=== PATIENT | male | born 1985 | race Caucasian/White ===

== ENCOUNTER 2018-12-17 11:40 | Emergency (ER) | payer OTHER ==
[~2018-12-17] VITALS: Ht 172.7 cm; Wt 84.8 kg
[2018-12-17] MEDS ORDERED: ONDANSETRON HCL 4 MG/2 ML VIAL ONE (11:55)
[2018-12-17] MEDS ORDERED: HYDROmorphone HCL 2 MG/ML VL ONE (11:55)
[2018-12-17] MEDS ORDERED: SODIUM CHLORIDE 0.9% 2,000 ML IV ONE (12:00)
[2018-12-17] MEDS ORDERED: ONDANSETRON HCL 4 MG/2 ML VIAL IV ONE (12:00)
[2018-12-17] MEDS ORDERED: HYDROmorphone HCL 2 MG/ML VL IV ONE (12:00)
[2018-12-17] MEDS ORDERED: cefTRIAXone SOD 1,000 MG VL IV ONE (12:30)
[2018-12-17] MEDS ORDERED: cefTRIAXone 1GM/50ML D5W 50 ML IV ONE ×2 (12:37→12:45)
[2018-12-17 12:41] LABS: Basophils # (auto) 0 uL; Nucleated Red Blood Cells % 0.1 %; Red Blood Cells 6.18 10^6/uL (4.5-5.90)
[2018-12-17 12:51] LABS: White Blood Cell 9.3 10^3/uL (4.4-10.8)
[2018-12-17 12:52] LABS: Basophils % (auto) 0.3 % (0.0-2.0); Eosinophils # (auto) 0 uL; Eosinophils % (auto) 0.4 % (0.0-7.0); Hemoglobin 17.6 g/dL (13.5-17.5); Lymphocytes # (auto) 1.5 uL; Lymphocytes % (auto) 16.3 % (10.0-50.0); Mean Corpuscular Hemoglobin 28.6 pg (28.0-32.0); Mean Corpuscular Hgb Conc. 34.6 g/dL (32.0-36.0); Mean Corpuscular Volume 82.6 fL (80.0-100.0); Monocytes # (auto) 0.8 uL; Monocytes % (auto) 8.3 % (0.0-12.0); Neutrophils % (auto) 74.7 % (37.0-80.0); Red Cell Distribution Width 12.6 % (11.8-14.3)
[2018-12-17 12:53] LABS: Platelet Count (auto) 241 10^3/uL (140-450)
[2018-12-17 12:59] LABS: Albumin 4.9 g/dL (3.4-5.0); Calcium 9.3 mg/dL (8.5-10.1); Potassium 3.4 mmol/L (3.5-5.1)
[2018-12-17 13:02] LABS: BUN/Creatinine Ratio 14.5; Bilirubin, Total 0.6 mg/dL (0.2-1.0); Total Protein 8.7 g/dL (6.4-8.2)
[2018-12-17 14:24] VITALS: BP 143/81
== END 2018-12-17 14:37 | disposition short-term general hospital (02) ==
LOC: ER 11:46
DX: T20.26XA Burn of second degree of forehead and cheek, initial encounter (principal); T22.251A Burn of second degree of right shoulder, initial encounter; X19.XXXA Contact with other heat and hot substances, initial encounter; Y93.89 Activity, other specified; Y92.89 Other specified places as the place of occurrence of the external cause; Y99.8 Other external cause status
CPT/HCPCS: 36415; 80053; 85025; 96365; 96375; 99285; J0696; J1170; J2405; J7030